=== PATIENT | male | born 1985 | race Hispanic/Latino ===

== ENCOUNTER 2025-03-15 13:27 | Emergency (ER) | payer BC, SELFPAY ==
[2025-03-15 13:30] VITALS: BP 120/81
[2025-03-15 14:10] LABS: COVID-19 Antigen Negative (Negative)
[2025-03-15 15:44] VITALS: BP 114/74
--- NOTE | 2025-03-15 16:03 | ED.GENMED ---
History of Present Illness
General
Chief Complaint: Headache
Source: patient
Exam Limitations: none
Time Seen by Provider: 03/15/25 15:36
Nursing documentation reviewed up to this point in time: agreed with
History of Present Illness
History of Present Illness:
The patient is a 39-year-old man with a past medical history of migraine headache who reports a piercing, pricking pain that he has been experiencing at the back of his left head. Patient denies neck pain. He denies vision changes. He denies
weakness and numbness. Patient reports occasionally feels it on the right side of the head as well. Patient reports it is partially relieved with Advil but has not gone away completely. Patient denies fever and rash. He denies sore throat.
Past History
Past History
ED Past Medical History: NIDDM and Other (Migraine headache)
ED Past Surgical History: Other
Social History
Tobacco: Non-smoker
Alcohol: Other
Drug: None
Personal:
Living: with family
Employment: Other
Family History
Family History: Other
Review of Systems
Review of Systems
Allergies reviewed?: Yes
All Other Systems: ROS reviewed and negative except as documented in HPI and ROS
Constitutional: Reports no symptoms
EENT: Reports no symptoms
Cardiac: Reports no symptoms
ABD/GI: Reports no symptoms
: Reports no symptoms
Musculoskeletal: Reports no symptoms
Skin: Reports no symptoms
Neurological: Reports headache
Endocrine: Reports no symptoms
Hematologic/Lymphatic: Reports no symptoms
Psychiatric: Reports no symptoms
Phy Exam
Physical Exam
Physical Exam:
Physical Exam
General: no apparent distress, not acutely ill. Well appearing, smiling and conversational
Neck: supple. no meningeal signs. normal psoterior pharynx
Heart: s1/s2 regular rate and rhythm, no murmur. equal radial pulses.
Lungs: no acute respiratory distress. clear bilaterally
Abdomen: normal bowel sounds. not tender. no CVAT
Neuro: alert and oriented. no focal neurological deficits. Extraocular muscles intact. 5 out of 5 strength in all extremities without drift.
Skin: no rash
Psychiatric: well kept. interactive and cooperative
Extremities: no edema. no calf tenderness. negative homans. good distal pulses
Course
Orders/Labs/Results
Orders:
Orders
03/15/25 13:34
CT Head W/o Iv Contrast Urgent
Comment:
Reason For Exam: L posterior piercing headache
03/15/25 13:37
COVID-19 Antigen Urgent
Source: Nasal Swab
Influenza A+B Rapid Molecular Urgent
LUCHO Source: Nasal Swab
Specimen Description:
Vital Signs
Initial and Last Documented VS:
Initial Vital Signs
Temp Pulse Resp BP Pulse Ox
98.2 F 94 18 120/81 96
03/15/25 13:30 03/15/25 13:30 03/15/25 13:30 03/15/25 13:30 03/15/25 13:30
Last Documented Vital Signs
Temp Pulse Resp BP Pulse Ox
98.8 F 83 17 114/74 96
03/15/25 15:44 03/15/25 15:44 03/15/25 15:44 03/15/25 15:44 03/15/25 16:03
MDM/Problems Addressed
Differential Diagnosis Includes:
Tension headache, migraine headache
MDM/Problems Addressed:
Patient presents with acute headache for 5 days
Chronic conditions affecting care:
Migraine
Acute Exacerbation and/or Progression of Chronic Illness:
Patient may have acute on chronic migraine headache
*Radiology
Radiology exam reviewed: radiology read reviewed
*Pulse Oximetry
SaO2: 96
Oxygen Mode of Delivery: Room air
Patient hypoxic: no
*EKG
Interpreted by ED Provider?: NA
*Webbing Tacker Interpretation
Rate: Webbing Tacker- N/A
*Critical Care Note
Total Time (30-74mins, 75-104mins- exclusive of procedures): Not Applicable
Data Reviewed
Source: patient
Patient Management
Social determinants of health affecting care: Living situation and Strong social support
Update Note
Update Note:
Patient appears completely well and comfortable. There is no sign of subarachnoid hemorrhage or meningitis.
ED Attending Note
-
Portions of this chart may have been created with voice recognition software.� Occasional wrong word or��sound alike� substitutions may have occurred due to the inherent limitations of voice recognition software.
Discharge Plan
Departure
Patient Disposition: Home (Routine Discharge)
Date of Disposition: 03/15/25
Time of Disposition: 16:19
Patient with high blood pressure during this ER visit?: No
Condition: Good
Covid-19: Not Applicable
Discharge Problem:
Headache
Instructions: Headache, Adult (DC)
Prescriptions:
New
indomethacin 25 mg capsule
25 mg PO TID PRN (Reason: pain) Qty: 14 0RF
Referrals:
Rogelio Serrano MD [Family Provider, Internal Medicine]
Lee Calvo MD [Active, Neurology]
Referral Note: Call this week if not feeling better within 3 days
Activity Restrictions/Additional Instructions:
Take indomethacin every 8 hours as needed for head pain. Do NOT combine indomethacin with any other NSAIDs such as ibuprofen, Motrin, Advil or Aleve.
The indomethacin was called into your pharmacy for pickup
Interventions
Interventions:
*General Assessment Last Done: 03/15/25 13:30
*Neglect/Abuse Screening Last Done: 03/15/25 13:30
*ED COVID-19 Vaccine History Last Done: 03/15/25 13:30
*ED Influenza Vaccine History Last Done: 03/15/25 13:30
*Risk Screen - Suicide (C-SSRS) Last Done: 03/15/25 13:30
ED- Neurological Assessment Last Done: 03/15/25 15:45
Discharge Date and Time
Print Language: SLOVAK
== END 2025-03-15 16:35 | disposition home or self-care (01) ==
LOC: EMR 13:27
PROVIDERS: Student in an Organized Health Care Education/Training Program; EMERGENCY PHYSICIAN Emergency Medicine; FAMILY PHYSICIAN Family Medicine
DX: R51.9 Headache, unspecified (principal); E11.9 Type 2 diabetes mellitus without complications
CPT/HCPCS: 99284; 70450; 87502; 87811